=== PATIENT | male | born 1975 | race Caucasian/White ===

== ENCOUNTER 2017-05-16 16:20 | Emergency (ER) | payer BC ==
--- NOTE | 2017-05-16 16:58 | EDM.PDOC ---
ED HPI GENERAL MEDICAL PROBLEM - General Chief Complaint: Abdominal Pain Stated Complaint: ABDOMINAL PAIN AND VOMITING Time Seen by Provider: 05/16/17 16:56 Source of Information: Reports: Patient History Limitations: Reports: No Limitations - History of Present Illness INITIAL COMMENTS - FREE TEXT/NARRATIVE: HISTORY AND PHYSICAL: [] History of Present Illness: [] Review of Systems: As per history of present illness and below otherwise all systems reviewed and negative. Past medical history: As per history of present illness and as reviewed below otherwise noncontributory. Surgical history: As per history of present illness and as reviewed below otherwise noncontributory. Social history: No reported history of drug or alcohol abuse. Family history: As per history of present illness and as reviewed below otherwise noncontributory. Physical exam: HEENT: Atraumatic, normocehpalic, pupils reactive, negative for conjunctival pallor or scleral icterus, mucous membranes moist, throat clear, neck supple, nontender, trachea midline. Lungs: Clear to auscultation, breath sounds equal bilaterally, chest non tender. Heart: S1S2, regular, negative for clicks, rubs, or JVD. Abdomen: Soft, nondistended, nontender. Negative for masses or hepatossplenmegaly. Negative for costovertebral tenderness. Pelvis: Stable nontender. Genitourinary: Deferred. Rectal: Deferred Extremities: Atraumatic, negative for cords or calf pain. Neurovascular unremarkable. Neuro: Awake, alert, oriented. Cranial nerves II through XII unremarkable. Cerebellum unremarkable. Motor and sensory unremarkable throughout. Exam nonfocal. Diagnostics: [CBC CMP and urinalysis abdominal CT without] Therapeutics: [IV fluids Toradol IV] Impression: [Ureteral stone] Plan: []Discharge to home Follow up with your urologist or with Dr. Sandip AQUINO [facility] [place] [address] Prescriptions will be electronically sent to [facility] Flomax 0.4 mg one daily at the same time Hydrocodone/APAP 10/325 mg 1tab 3 times a day when necessary pain Definitive disposition and diagnosis as appropriate pending reevaluation and review of above. left flank, left abdomen Pain Score (Numeric/FACES): 10 - Related Data Allergies Allergy/AdvReac Type Severity Reaction Status Date / Time No Known Allergies Allergy Verified 05/16/17 16:51 Home Meds: Home Meds Tamsulosin [Flomax] 0.4 mg PO ONETIME #30 cap.er 05/16/17 [Rx] Past Medical History - Past Health History Medical/Surgical History: Denies Medical/Surgical History Social & Family History - Family History Family Medical History: Noncontributory - Tobacco Use Smoking Status *Q: Never Smoker Second Hand Smoke Exposure: No - Caffeine Use Caffeine Use: Reports: Coffee - Recreational Drug Use Recreational Drug Use: No ED ROS GENERAL - Review of Systems Review Of Systems: ROS reveals no pertinent complaints other than HPI. ED EXAM, GI/ABD - Physical Exam Exam: See Below (see dictation) Course - Vital Signs Last Recorded V/S: Last Vital Signs Temp 35.2 C 05/16/17 16:48 Pulse 61 05/16/17 16:48 Resp 20 05/16/17 16:48 BP 142/86 H 05/16/17 16:48 Pulse Ox 96 05/16/17 16:48 - Orders/Labs/Meds Orders: Active Orders 24 hr Category Date Time Status Abdomen Pelvis wo Cont [CT] Stat Exams 05/16/17 17:00 Taken CULTURE URINE [RM] Stat Lab 05/16/17 17:14 Received Sodium Chloride 0.9% [Saline Flush] Med 05/16/17 16:59 Active 10 ml FLUSH ASDIRECTED PRN Sodium Chloride 0.9% [Saline Flush] Med 05/16/17 16:59 Active 2.5 ml FLUSH ASDIRECTED PRN Saline Lock Insert [OM.PC] Stat Oth 05/16/17 16:59 Ordered Medication Orders Sodium Chloride (Saline Flush) 10 ml FLUSH ASDIRECTED PRN PRN Reason: Keep Vein Open Sodium Chloride (Saline Flush) 2.5 ml FLUSH ASDIRECTED PRN PRN Reason: Keep Vein Open Labs: Laboratory Tests 05/16/17 05/16/17 05/16/17 Range/Units 17:14 17:14 17:14 WBC 14.44 H (4.0-11.0) K/uL RBC 5.18 (4.50-5.90) M/uL Hgb 15.7 (13.0-17.0) g/dL Hct 45.4 (38.0-50.0) % MCV 87.6 (80.0-98.0) fL MCH 30.3 (27.0-32.0) pg MCHC 34.6 (31.0-37.0) g/dL RDW Std Deviation 39.7 (28.0-62.0) fl RDW Coeff of Mery 13 (11.0-15.0) % Plt Count 225 (150-400) K/uL MPV 9.10 (7.40-12.00) fL Neut % (Auto) 88.8 H (48.0-80.0) % Lymph % (Auto) 6.2 L (16.0-40.0) % [place] % (Auto) 4.8 (0.0-15.0) % Eos % (Auto) 0.1 (0.0-7.0) % Baso % (Auto) 0.1 (0.0-1.5) % Neut # (Auto) 12.8 H (1.4-5.7) K/uL Lymph # (Auto) 0.9 (0.6-2.4) K/uL [place] # (Auto) 0.7 (0.0-0.8) K/uL Eos # (Auto) 0.0 (0.0-0.7) K/uL Baso # (Auto) 0.0 (0.0-0.1) K/uL Nucleated RBC % 0.0 /100WBC Nucleated RBCs # 0 K/uL Sodium 140 (136-146) mmol/L Potassium 4.1 (3.5-5.1) mmol/L Chloride 104 (98-110) mmol/L Carbon Dioxide 26 (21-31) mmol/L BUN 20 (6.0-23.0) mg/dL Creatinine 1.1 (0.6-1.5) mg/dL Est Cr Clr Drug Dosing 88.38 mL/min Estimated GFR (MDRD) > 60.0 ml/min Glucose 152 H (60-110) mg/dL Calcium 9.1 (8.8-10.8) mg/dL Total Bilirubin 0.8 (0.1-1.5) mg/dL AST 26 (5-40) IU/L ALT 33 (8-54) IU/L Alkaline Phosphatase 65 (40-150) Total Protein 7.6 (6.0-8.0) g/dL Albumin 4.4 (3.5-5.0) g/dL Globulin 3.2 (2.0-3.5) g/dL Albumin/Globulin Ratio 1.4 (1.3-2.8) Urine Color YELLOW Urine Appearance CLEAR Urine pH 5.5 (5.0-8.0) Ur Specific Reading >= 1.030 (1.001-1.035) Urine Protein TRACE (NEGATIVE) mg/dL Urine Glucose (UA) NEGATIVE (NEGATIVE) mg/dL Urine Ketones TRACE H (NEGATIVE) mg/dL Urine Occult Blood LARGE H (NEGATIVE) Urine Nitrite NEGATIVE (NEGATIVE) Urine Bilirubin NEGATIVE (NEGATIVE) Urine Urobilinogen 0.2 (<2.0) EU/dL Ur Leukocyte Esterase NEGATIVE (NEGATIVE) Urine RBC 8-10 (0-2/HPF) Urine WBC 2-3 (0-5/HPF) Ur Epithelial Cells MODERATE (NONE-FEW) Urine Bacteria FEW (NEGATIVE) Hyaline Casts 2-3 (0-2/LPF) Urine Mucus HEAVY (NONE-MOD) Urine Sperm FEW (NEGATIVE) Meds: Medications Generic Name Dose Route Start Last Admin Trade Name Freq PRN Reason Stop Dose Admin Sodium Chloride 10 ml 05/16/17 16:59 Saline Flush FLUSH ASDIRECTED PRN Keep Vein Open Sodium Chloride 2.5 ml 05/16/17 16:59 Saline Flush FLUSH ASDIRECTED PRN Keep Vein Open Discontinued Medications Generic Name Dose Route Start Last Admin Trade Name Freq PRN Reason Stop Dose Admin Sodium Chloride 1,000 mls @ 999 mls/hr 05/16/17 16:59 05/16/17 17:42 Normal Saline IV 05/16/17 17:59 999 mls/hr STAT ONE Administration Ketorolac Tromethamine 30 mg 05/16/17 16:59 05/16/17 17:42 Toradol IVPUSH 05/16/17 17:00 30 mg ONETIME ONE Administration Ondansetron HCl 4 mg 05/16/17 17:00 05/16/17 17:42 Zofran IVPUSH 05/16/17 17:01 4 mg ONETIME ONE Administration Departure - Departure Time of Disposition: 19:02 Disposition: Home, Self-Care 01 Condition: Good Clinical Impression: Ureteral stone - Discharge Information Prescriptions: Tamsulosin [Flomax] 0.4 mg PO ONETIME #30 cap.er Referrals: PCP,None [Primary Care Provider] - Forms: ED Department Discharge Additional Instructions: The following information is given to patients seen in the emergency department who are being discharged to home. This information is to outline your options for follow-up care. We provide all patients seen in our emergency department with a follow-up referral. The need for follow-up, as well as the timing and circumstances, are variable depending upon the specifics of your emergency department visit. If you don't have a primary care physician on staff, we will provide you with a referral. We always advise you to contact your personal physician following an emergency department visit to inform them of the circumstance of the visit and for follow-up with them and/or the need for any referrals to a consulting specialist. The emergency department will also refer you to a specialist when appropriate. This referral assures that you have the opportunity for followup care with a specialist. All of these measure are taken in an effort to provide you with optimal care, which includes your followup. Under all circumstances we always encourage you to contact your private physician who remains a resource for coordinating your care. When calling for followup care, please make the office aware that this follow-up is from your recent emergency room visit. If for any reason you are refused follow-up, please contact the [facility] emergency department at and asked to speak to the emergency department charge nurse. You have a renal stone (kidney stone) Medication has been prescribed hydrocodone/APAP 10/325 mg 1 tablet by mouth 3 times daily as needed for pain #21 no refill Flomax 0.4 mg one daily at the same time #30 no refill Follow-up with your urologist Local urologist Dr. Sandip AQUINO [facility] [address] [place] [id number] - My Orders Last 24 Hours: My Active Orders 05/16/17 16:59 Sodium Chloride 0.9% [Saline Flush] 10 ml FLUSH ASDIRECTED PRN Sodium Chloride 0.9% [Saline Flush] 2.5 ml FLUSH ASDIRECTED PRN Saline Lock Insert [OM.PC] Stat 05/16/17 17:00 Abdomen Pelvis wo Cont [CT] Stat 05/16/17 17:14 CULTURE URINE [RM] Stat - Assessment/Plan Last 24 Hours: My Active Orders 05/16/17 16:59 Sodium Chloride 0.9% [Saline Flush] 10 ml FLUSH ASDIRECTED PRN Sodium Chloride 0.9% [Saline Flush] 2.5 ml FLUSH ASDIRECTED PRN Saline Lock Insert [OM.PC] Stat 05/16/17 17:00 Abdomen Pelvis wo Cont [CT] Stat 05/16/17 17:14 CULTURE URINE [RM] Stat
[2017-05-16] MEDS ORDERED: Sodium Chloride 0.9% 2.5 ML Syringe FLUSH PRN (16:59)
[2017-05-16] MEDS ORDERED: Sodium Chloride 0.9% 1,000 ML IV ONE (16:59)
[2017-05-16] MEDS ORDERED: Ketorolac 30 MG/ML SDV IVPUSH ONE (16:59)
[2017-05-16] MEDS ORDERED: Sodium Chloride 0.9% 10 ML Syringe FLUSH PRN (16:59)
[2017-05-16] MEDS ORDERED: Ondansetron 4 MG/2 ML SDV IVPUSH ONE (17:00)
[2017-05-16 17:46] LABS: CHLORIDE,CL 104 mmol/L (98-110); SODIUM,NA 140 mmol/L (136-146)
--- NOTE | 2017-05-17 10:45 | CT ---
EXAM DATE: 05/16/17 PATIENT'S AGE: 42 Patient: CHEYENNE GROSS Facility: [place], [place] Site . Site : [id number] Study: CT Abdomen/Pelvis WO CONT [id number]/[id number] 5:41:38 PM Ordering Physician: Doctor Mckeon Final Report: INDICATION: Left flank pain TECHNIQUE: CT abdomen and pelvis without contrast. COMPARISON: None available FINDINGS: Lower chest: Unremarkable. Liver: Unremarkable. Spleen: Unremarkable. Pancreas: Unremarkable. Gallbladder and bile ducts: Unremarkable. Adrenal glands: Unremarkable. Kidneys: Mild left perirenal stranding with mild prominence of the extrarenal pelvis and ureter, however no significant hydronephrosis. A 3 millimeter bladder calcification near the left UVJ compatible with a recently passed left ureteral calculus. No right hydronephrosis or discrete urolithiasis. A 9 millimeter right renal peripelvic cyst. GI tract: No high-grade mechanical bowel obstruction. Fat attenuation within the [place] of ileal segments can be seen as sequelae of chronic inflammation. No evidence of appendicitis. No significant pericolonic changes. Vascular structures: Unremarkable. Lymph nodes: Unremarkable. Miscellaneous: Unremarkable. No free air or significant free fluid. Pelvic Organs: Bladder wall thickening versus underdistention. A mildly prominent prostate, demonstrating a subtle, ill-defined area of decreased attenuation in the left lobe, nonspecific. Bones: Unremarkable for age. IMPRESSION: A 3 millimeter bladder calcification near the left UVJ consistent with a recently passed left ureteral calculus, with mild left ureteral prominence, however no significant hydronephrosis. Bladder wall thickening versus underdistention. Correlate with urinalysis. An ill-defined area of mildly decreased attenuation in the left prostatic lobe, nonspecific. Correlate with urological evaluation. Dictated by Fransisco Li MD @ 05/16/2017 6:31:02 PM Dictated by: Fransisco Li MD @ 05/16/2017 18:37:25 (Electronic Signature) Report Signed by Proxy. [facility]AM HOSPITALPreethi
== END 2017-05-16 19:26 | disposition home or self-care (01) ==
LOC: MW.ED 16:20
DX: N20.1 Calculus of ureter (principal)
CPT/HCPCS: 36415; 74176; 80053; 81001; 85025; 87086; 96361; 96374; 96375; 99284; J1885; J2405; J7040

== ENCOUNTER 2019-04-15 12:48 | Emergency (ER) | payer BC ==
[2019-04-15] MEDS ORDERED: cefTRIAXone 1 GM in Lidocaine 1% 4 ML IM ONE (13:08)
--- NOTE | 2019-04-15 13:12 | EDM.PDOC ---
ED HPI GENERAL MEDICAL PROBLEM - General Chief Complaint: Skin Complaint Stated Complaint: INFECTION ON NECK Time Seen by Provider: 04/15/19 13:04 - History of Present Illness INITIAL COMMENTS - FREE TEXT/NARRATIVE: HISTORY AND PHYSICAL: History of present illness: Patient 44-year-old white male presents with a concern of swelling and tenderness to his left posterior neck that occurred after he had a cutaneous bump on his skin that he picked and now feels is infected is no fever chills nausea vomiting or other complaints. Review of systems: As per history of present illness and below otherwise all systems reviewed and negative. Past medical history: As per history of present illness and as reviewed below otherwise noncontributory. Surgical history: As per history of present illness and as reviewed below otherwise noncontributory. Social history: No reported history of drug or alcohol abuse. Family history: As per history of present illness and as reviewed below otherwise noncontributory. Physical exam: HEENT: Atraumatic, normocephalic, pupils reactive, negative for conjunctival pallor or scleral icterus, mucous membranes moist, throat clear, neck supple, nontender, trachea midline. Patient has a excoriated area base of his left occiput with swelling and tenderness to palpation there is no fluctuance this swollen area is approximately 3 x 4 cm Lungs: Clear to auscultation, breath sounds equal bilaterally, chest nontender. Heart: S1S2, regular, negative for clicks, rubs, or JVD. Abdomen: Soft, nondistended, nontender. Negative for masses or hepatosplenomegaly. Negative for costovertebral tenderness. Pelvis: Stable nontender. Genitourinary: Deferred. Rectal: Deferred. Extremities: Atraumatic, negative for cords or calf pain. Neurovascular unremarkable. Neuro: Awake, alert, oriented. Cranial nerves II through XII unremarkable. Cerebellum unremarkable. Motor and sensory unremarkable throughout. Exam nonfocal. Diagnostics: None Therapeutics: Rocephin 1 g IM Impression: #1 cellulitis rule out adenitis Definitive disposition and diagnosis as appropriate pending reevaluation and review of above. back of neck Pain Score (Numeric/FACES): 6 - Related Data Allergies Allergy/AdvReac Type Severity Reaction Status Date / Time No Known Allergies Allergy Verified 04/15/19 12:58 Home Meds: Home Meds . [No Known Home Meds] 04/15/19 [History] Past Medical History - Past Health History Medical/Surgical History: Denies Medical/Surgical History Genitourinary History: Reports: Renal Calculus - Infectious Disease History Infectious Disease History: Reports: None Social & Family History - Family History Family Medical History: Noncontributory - Tobacco Use Smoking Status *Q: Never Smoker - Caffeine Use Caffeine Use: Reports: Coffee - Recreational Drug Use Recreational Drug Use: No ED ROS GENERAL - Review of Systems Review Of Systems: ROS reveals no pertinent complaints other than HPI. ED EXAM, SKIN/RASH Exam: See Below (dictation) Course - Vital Signs Last Recorded V/S: Last Vital Signs Temp 36.6 C 04/15/19 12:58 Pulse 68 04/15/19 12:58 Resp 18 04/15/19 12:58 BP 134/94 H 04/15/19 12:58 Pulse Ox 98 04/15/19 12:58 Departure - Departure Time of Disposition: 13:11 Disposition: Home, Self-Care 01 Condition: Good Clinical Impression: Cellulitis - Discharge Information Referrals: PCP,None [Primary Care Provider] - Additional Instructions: The following information is given to patients seen in the emergency department who are being discharged to home. This information is to outline your options for follow-up care. We provide all patients seen in our emergency department with a follow-up referral. The need for follow-up, as well as the timing and circumstances, are variable depending upon the specifics of your emergency department visit. If you don't have a primary care physician on staff, we will provide you with a referral. We always advise you to contact your personal physician following an emergency department visit to inform them of the circumstance of the visit and for follow-up with them and/or the need for any referrals to a consulting specialist. The emergency department will also refer you to a specialist when appropriate. This referral assures that you have the opportunity for followup care with a specialist. All of these measure are taken in an effort to provide you with optimal care, which includes your followup. Under all circumstances we always encourage you to contact your private physician who remains a resource for coordinating your care. When calling for followup care, please make the office aware that this follow-up is from your recent emergency room visit. If for any reason you are refused follow-up, please contact the [facility] emergency department at and asked to speak to the emergency department charge nurse. Keflex as prescribed follow-up for reevaluation primary medical doctor as discussed Motrin/Tylenol as directed and return as needed as discussed
== END 2019-04-15 13:55 | disposition home or self-care (01) ==
LOC: MW.ED 12:48
DX: L03.811 Cellulitis of head [any part, except face] (principal)
CPT/HCPCS: 96372; 99282; J0696; J2001